=== PATIENT | female | born 1965 | race Caucasian/White ===

== ENCOUNTER 2021-05-27 12:20 | Inpatient (IN) ==
[~2021-05-27 12:20] MED LIST: Buffered Lidocaine 1% SYRIN 1 ml INTRADERM ONE; Lactated Ringers 1000 ml BAG 1,000 ML IV SCH
[2021-05-27] MEDS ORDERED: ceFAZolin 1 GM ADVAN 1 GM ADDV.VIAL IVPB ONE (12:40)
[2021-05-27] MEDS ORDERED: ceFAZolin 2 GM in NS PREMIX 2 GM/100 ML BAG IVPB ONE (12:40)
[2021-05-27] MEDS ORDERED: Midazolam 2 mg/2 ml VIAL 1 mg/ml 2 ml VIAL (2 mg) ONE (12:58)
[2021-05-27] MEDS ORDERED: Lidocaine 2% PF 5 ML VIAL ONE (12:58)
[2021-05-27] MEDS ORDERED: Propofol 10 MG/ML 20 ML BTL ONE ×2 (12:58→17:11)
[2021-05-27] MEDS ORDERED: Ketamine HCL 50 mg/ml 10 ml VIAL (500 MG) ONE (12:58)
[2021-05-27] MEDS ORDERED: fentaNYL 100 mcg/2 ml 50 MCG/ML VIAL ONE ×2 (12:59→16:28)
[2021-05-27] MEDS ORDERED: ROPIVACAINE 5 MG/ML 30 ML BTL (0.5%) ONE (13:48)
[2021-05-27] MEDS ORDERED: Vancomycin 1,000 MG VIAL ONE (13:53)
[2021-05-27] MEDS ORDERED: Ondansetron 4 mg VIAL 2 MG/ML 2 ml VIAL ONE ×2 (14:16→15:11)
[2021-05-27] MEDS ORDERED: Rocuronium 50 mg VIAL 10 mg/ml 5 ml VIAL (50 mg) ONE (14:32)
[2021-05-27] MEDS ORDERED: fentaNYL 250 mcg/5 ml 50 MCG/ML 5 ml VIAL (250 MCG) ONE (14:33)
[2021-05-27] MEDS ORDERED: EPHEDrine (Pressors) 50 MG/ML VIAL ONE (14:52)
[2021-05-27] MEDS ORDERED: Dexamethasone IV 4 MG/ML VIAL 1 ml VIAL ONE (15:11)
[2021-05-27] MEDS ORDERED: HYDROmorphone 1 MG/1 ML SYRINGE ONE ×2 (15:25→17:46)
[2021-05-27] MEDS ORDERED: Naloxone 0.4 mg VIAL 0.4 mg/ml 1 ml VIAL IV PRN (15:40)
[2021-05-27] MEDS ORDERED: diPHENhydraMINE IV 50 MG/ML 1 ml VIAL (BENADRYL) IV PRN ×2 (15:40→17:43)
[2021-05-27] MEDS ORDERED: Prochlorperazine 5 mg/ml 2 ml VIAL (10 mg) IV PRN (15:40)
[2021-05-27] MEDS ORDERED: Lactulose 30 ml UDC PO PRN (17:43)
[2021-05-27] MEDS ORDERED: Ondansetron 4 mg VIAL 2 MG/ML 2 ml VIAL IV PRN (17:43)
[2021-05-27] MEDS ORDERED: diPHENhydraMINE 25 mg TAB PO PRN (17:43)
[2021-05-27] MEDS ORDERED: Ondansetron ODT 4 mg TAB 4 MG TAB PO PRN (17:43)
[2021-05-27] MEDS ORDERED: Magnesium Hydroxide LIQ 30 ML UDC PO PRN (17:43)
[2021-05-27] MEDS: HYDROmorphone 1 MG/1 ML SYRINGE IV PRN ×4 (17:49→18:26)
[2021-05-27] MEDS: D5W 1/2 NS 1000 ml BAG 1,000 ML IV SCH (21:10)
[2021-05-27] MEDS: Magnesium Hydroxide LIQ 30 ML UDC PO SCH ×2 (21:11→21:14)
[2021-05-27] MEDS: Ammonium Lactate 12% 1 APPLIC TUBE TOPICAL SCH (21:14)
[2021-05-27] MEDS ORDERED: ceFAZolin 1 GM ADVAN 1 GM in NS 0.9% 50 ML 50 ML IVPB SCH (22:45)
[2021-05-28] MEDS: ceFAZolin 1 GM in Dextrose 1 GM/50 ML BAG IVPB SCH ×2 (06:10→15:25)
[2021-05-28 06:14] LABS: Hematocrit 39 % (35-47); Mean Platelet Volume 8.6 fL (7.4-10.4); Platelet Count 253 10^3/uL (150-450)
[2021-05-28 06:31] LABS: Calcium 8.2 mg/dL (8.6-10.3); EGFR African American 140.8 (>60); EGFR Non-African American 116.4 (>60); Potassium 4.2 mmol/L (3.5-5.0)
[2021-05-28] MEDS: Ammonium Lactate 12% 1 APPLIC TUBE TOPICAL SCH ×2 (07:56→20:01)
[2021-05-28] MEDS: Magnesium Hydroxide LIQ 30 ML UDC PO SCH ×2 (07:57→20:05)
[2021-05-28] MEDS: Vitamin THERAPEUTIC TAB PO SCH (07:57)
[2021-05-28] MEDS ORDERED: Azithromyxin PAK 250 mg TA(NF) PO SCH (09:00)
[2021-05-28] MEDS: oxyCODONE SR 10 mg TAB PO SCH ×2 (09:04→20:04)
[2021-05-29] MEDS ORDERED: HYDROmorphone 0.5 MG/0.5 ML SYRINGE IV SLOW PU ONE (00:13)
[2021-05-29 06:33] LABS: Hematocrit 41 % (35-47); Hemoglobin 13.6 g/dL (12.0-16.0); Mean Platelet Volume 8.6 fL (7.4-10.4); Platelet Count 246 10^3/uL (150-450)
[2021-05-29] MEDS: Ammonium Lactate 12% 1 APPLIC TUBE TOPICAL SCH ×2 (09:01→21:07)
[2021-05-29] MEDS: oxyCODONE SR 10 mg TAB PO SCH ×2 (09:01→21:06)
[2021-05-29] MEDS: Magnesium Hydroxide LIQ 30 ML UDC PO SCH ×2 (09:01→21:07)
[2021-05-29] MEDS: Vitamin THERAPEUTIC TAB PO SCH (09:02)
[2021-05-29] MEDS: D5W 1/2 NS 1000 ml BAG 1,000 ML IV SCH (10:28)
[2021-05-30 06:40] LABS: Hematocrit 36 % (35-47); Hemoglobin 12.1 g/dL (12.0-16.0); Mean Platelet Volume 8.7 fL (7.4-10.4); Platelet Count 236 10^3/uL (150-450)
[2021-05-30] MEDS: Ammonium Lactate 12% 1 APPLIC TUBE TOPICAL SCH (07:43)
[2021-05-30] MEDS: Magnesium Hydroxide LIQ 30 ML UDC PO SCH (07:49)
[2021-05-30 07:59] VITALS: BP 107/69
[2021-05-30] MEDS: Vitamin THERAPEUTIC TAB PO SCH (08:39)
[2021-05-30] MEDS: oxyCODONE SR 10 mg TAB PO SCH (08:39)
== END 2021-05-30 12:20 | disposition home or self-care (01) | DRG 302 ==
LOC: OR 12:20 → SSU 12:20
PROVIDERS: ADMIT Orthopaedic Surgery; ATTEND Orthopaedic Surgery

== ENCOUNTER 2023-12-23 21:26 | Inpatient (IN) ==
[2023-12-24] MEDS: Acetaminophen IV 1 GM/100ML 1,000 MG/100 ML BAG IV PRN (01:41)
[2023-12-24] MEDS: Lactated Ringers 1000 ml BAG 1,000 ML IV SCH (01:41)
[2023-12-24] MEDS: Enoxaparin 40 MG/0.4 ML SYR SUBCUT SCH (01:42)
[2023-12-24] MEDS: Ondansetron 4 mg VIAL 2 MG/ML 2 ml VIAL IV PRN (01:55)
[2023-12-24 06:07] LABS: ABS Basophils 0.1 10^3/uL (0.0-0.1); ABS Eosinophils 0.1 10^3/uL (0.0-0.5); ABS Monocytes 0.7 10^3/uL (0.0-0.9); ABS Neutrophils 6.7 10^3/uL (1.5-7.6); ABS Nucleated RBC 0.01 10^3/ul; Eosinophil % 0.8 %; Hematocrit 42.6 % (35-45); Hemoglobin 14.6 g/dL (11.5-14.3); Lymphocyte % 20.9 %; Mean Corpuscular Hemoglobin 30.3 pg (27-33); Mean Corpuscular Hgb Conc 34.3 g/dL (31-36); Mean Corpuscular Volume 88.4 fL (80-97); Mean Platelet Volume 8.4 fL (7.5-11.2); Nucleated Red Blood Cells % 0.1 %/100WBC (0.0-0.8); Platelet Count 240 10^3/uL (150-450); Red Blood Count 4.82 10^6/uL (3.63-4.92); Red Cell Distribution Width 13.9 % (12-17); White Blood Count 9.6 10^3/uL (3.8-11.8)
[2023-12-24] MEDS ORDERED: Lorazepam PYXIS KEY PRN (06:38)
[2023-12-24] MEDS ORDERED: LORazepam 2 mg VIAL 1 ml IV PUSH PRN (06:38)
[2023-12-24 06:58] LABS: Calcium 9.2 mg/dL (8.6-10.3); Creatinine, Serum 0.81 mg/dL (0.51-0.95); Magnesium 1.9 mg/dL (1.9-2.7); Potassium 4.3 mmol/L (3.5-5.0); eGFR CKD-EPI 83.1 (>60)
[2023-12-24] MEDS ORDERED: Benzocaine/Menthol LOZ PO PRN (10:36)
[2023-12-24] MEDS: Diatrizoate Meg/Sod(CONTRAST) 30 ML ORAL.SOLN PO ONE (11:56)
[2023-12-25 05:58] LABS: ABS Eosinophils 0.1 10^3/uL (0.0-0.5); ABS Lymphocytes 1.9 10^3/uL (1.0-4.8); ABS Monocytes 0.5 10^3/uL (0.0-0.9); ABS Neutrophils 3.5 10^3/uL (1.5-7.6); ABS Nucleated RBC 0.01 10^3/ul; Eosinophil % 2.2 %; Hemoglobin 13.1 g/dL (11.5-14.3); Lymphocyte % 31.3 %; Mean Corpuscular Hemoglobin 30.1 pg (27-33); Mean Corpuscular Hgb Conc 33.5 g/dL (31-36); Mean Corpuscular Volume 89.9 fL (80-97); Mean Platelet Volume 8.4 fL (7.5-11.2); Nucleated Red Blood Cells % 0.1 %/100WBC (0.0-0.8); Platelet Count 179 10^3/uL (150-450); Red Blood Count 4.34 10^6/uL (3.63-4.92); Red Cell Distribution Width 13.7 % (12-17); White Blood Count 6.1 10^3/uL (3.8-11.8)
[2023-12-25 06:20] LABS: Calcium 8.6 mg/dL (8.6-10.3); Creatinine, Serum 0.55 mg/dL (0.51-0.95); Magnesium 1.8 mg/dL (1.9-2.7); Potassium 3.9 mmol/L (3.5-5.0); eGFR CKD-EPI 104.9 (>60)
[2023-12-25] MEDS: Magnesium Sulfate IV 1GM/100ML 1 GM/100 ML BAG IV ONE (09:40)
[2023-12-25 14:02] VITALS: BP 118/70
== END 2023-12-25 15:30 | disposition home or self-care (01) | DRG 247 ==
LOC: ED 21:26 → SUATTDRO 21:39 → EDHOLD 21:39 → SSU 12-24 00:12
PROVIDERS: ADMIT Internal Medicine; ATTEND Student in an Organized Health Care Education/Training Program